=== PATIENT | male | born 1940 | race Caucasian/White ===

== ENCOUNTER 2024-05-02 15:54 | Emergency (ER) | payer OTHER ==
[2024-05-02 16:27] VITALS: BMI 27.8
[2024-05-02 17:49] LABS: HEMATOCRIT 41.3 % (35.4-49); HEMOGLOBIN 13.7 GM/dL (11.7-16.9); MCH 28.6 pg (25.7-33.7); MCHC 33.1 g/dl (32.0-35.9); MEAN CELL VOLUME 86.4 fl (80-96); MEAN PLT VOLUME 8.5 fl (7.5-11.1); PLATELET COUNT 212 10^3/uL (134-434); RBC 4.78 M/mm3 (4.00-5.60); RDW 17.1 % (11.9-15.9); WHITE BLOOD COUNT 9.9 K/mm3 (4.0-10.0)
[2024-05-02 18:11] LABS: POTASSIUM 4.5 mmol/L (3.5-5.1)
[2024-05-02 18:13] LABS: CALCIUM 9.1 mg/dL (8.5-10.1)
[2024-05-02 18:14] LABS: BLOOD UREA NITROGEN 11.3 mg/dL (7-18)
[2024-05-02 18:17] LABS: CREATININE 1.1 mg/dL (0.55-1.3)
[2024-05-02 18:19] LABS: BILIRUBIN,TOTAL 0.9 mg/dL (0.2-1); TOT PROT 5.7 g/dl (6.4-8.2)
[2024-05-03 01:18] VITALS: BP 141/84; PULSE 75; RESP 18; TEMP 97.7
== END 2024-05-03 01:59 | disposition home or self-care (01) ==
LOC: JER 15:54
DX: M25.562 Pain in left knee (principal); M54.50 Low back pain, unspecified; V00.811A Fall from moving wheelchair (powered), initial encounter
CPT/HCPCS: 36415; 70450-TC; 71045-TC-FY; 73502-TC-LT-FY; 73562-TC-LT-FY; 80053; 84484; 85027; 93005; 93010; 99285-25